=== PATIENT | male | born 1955 | race Caucasian/White ===

== ENCOUNTER → 2017-06-01 | Outpatient (CLI) | payer OTHER ==
[~2017-06-01] MED LIST: FISH OIL + D31 EACH
== END ==
LOC: RAD 10:23
DX: L40.0 Psoriasis vulgaris (principal); Z79.899 Other long term (current) drug therapy

== ENCOUNTER 2017-09-18 12:21 | Emergency (ER) | payer OTHER ==
[~2017-09-18] VITALS: Ht 175.3 cm; Wt 77.1 kg
[2017-09-18 12:22] VITALS: BP 149/86
[2017-09-18] MEDS ORDERED: OTEZLA1 EACH PO (12:30)
== END 2017-09-18 13:46 | disposition home or self-care (01) ==
LOC: ER 12:21
DX: M79.89 Other specified soft tissue disorders (principal); Z87.890 Personal history of sex reassignment

== ENCOUNTER → 2020-08-27 | Outpatient (CLI) | payer OTHER ==
[~2020-08-27] MED LIST changes: +OTEZLA1 EACH PO
== END ==
LOC: CAT 08:46
PROVIDERS: ATTEND Family Medicine
DX: Z13.6 Encounter for screening for cardiovascular disorders (principal); I25.10 Atherosclerotic heart disease of native coronary artery without angina pectoris; E78.00 Pure hypercholesterolemia, unspecified

== ENCOUNTER → 2021-12-11 | Outpatient (CLI) | payer OTHER ==
[~2021-12-11] VITALS: Ht 172.7 cm; Wt 72.6 kg
[~2021-12-11] MED LIST changes: +CRESTOR5 MG PO; +PRILOSEC OTC20 MG PO
--- NOTE | 2021-12-14 14:36 | P ---
[facility] [place] [address] PROCEDURE REPORT Name: GABRIEL BEVERLY JR Room #: REG [facility]#: [id number] Admission: 12/11/21 Attend Phys: Caesar Goldstein Discharge: Date of : 51 Report #: [id number] THIS REPORT FOR: cc: Roger Mix MD, Neal A. MD McElhinney, Christian C. MD ~ cc: Roger Mix MD DATE OF SERVICE: 12/11/2021 PROCEDURE PERFORMED: Upper endoscopy with biopsies. HISTORY OF PRESENT ILLNESS: The patient is a 66-year-old male with a history of gastroesophageal reflux disease. Upper endoscopy performed on 12/09/2020 showing grade B erosive esophagitis. 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 Biopsies were negative for H. pylori at that time. The patient was placed on daily PPI therapy. He is here for one-year followup of his Severino's esophagus. He denies any symptoms. DESCRIPTION OF PROCEDURE: The risks and benefits of the procedure were explained to the patient, those risks including but not limited to bleeding, perforation and the risk of sedation. He understood these risks and gave informed consent. Sedation was given using propofol per Anesthesia. Next, using a standard Olympus upper endoscope, the scope was placed in the patient's mouth and advanced under direct vision through the esophagus, stomach and into the second portion of the duodenum. The larynx was normal in appearance. The upper and mid esophagus was normal. In the distal esophagus, a short segment of Severino's was again noted. Biopsies were obtained. No evidence of esophagitis. Overall, the gastric mucosa was normal. The pylorus was normal and patent. The duodenal bulb, first and second portion were all normal. The scope was then withdrawn and the procedure terminated. The patient tolerated the procedure well. IMPRESSION: 1. Short segment Severino's esophagus. 2. Otherwise, normal upper endoscopy. RECOMMENDATIONS: 1. Await biopsy results. 2. Continue daily PPI therapy. [address] [address] PROCEDURE REPORT Name: GABRIEL BEVERLY Room #: REG [facility] Thomason#: [id number] Admission: 12/11/21 Attend Phys: Caesar Goldstein Discharge: Date of : 51 Report #: [id number] Thank you for allowing me to participate in his care. <ELECTRONICALLY SIGNED> By: Caesar Gordon MD 12/14/21 [id number] [id number] Caesar Gordon MD /nt
--- NOTE | 2021-12-17 18:06 | PATH ---
[facility] [address] [place] [address] PATHOLOGY RPT PROCEDURE Name: GABRIEL ORTIZ Room #: REG [facility]DR[facility] Gonzalez.#: [id number] Admission: 12/11/21 Date of : 51 Discharge: Report #: [id number] Path Case #: [id number] [facility] Accession Number: [id number] . 01 Material submitted: . esophagus - DISTAL ESOPHAGUS HX OF LAIRD'S. Modifiers: distal . 01 Clinical history: . HX OF LAIRD'S GERD, LAIRD'S . 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 - Negative for dysplasia and malignancy. . (MINGO:nubia; 12/16/2021) QLM 12/16/20212037 Local . 02 Comment: The case is seen in co-review, with consensus, by Dr. Kaur Madrid on 12/16/2021. . 02 Electronically signed: . Rodney Millan MD, Pathologist NPI- [id number] . 01 Gross description: . The specimen is received in formalin, labeled "Gabriel Ortiz Jr, distal esophagus". Received are 3 segments of pale wallace tissue ranging in size from 0.2 cm to 0.3 cm in maximum dimensions. The specimen is submitted entirely in cassette A1.([facility]; 12/11/2021) [facility] 12/11/2021 [facility] Local . 02 Pathologist provided ICD-10: K20.90, K22.70 . 02 CPT . 614032 Specimen Comment: A courtesy copy of this report has been sent to [phone], [phone] Specimen Comment: [id number] Specimen Comment: Report sent to / DR GRAY Specimen Comment: A duplicate report has been generated due to demographic updates. Performed at: [address] [place] [address] PATHOLOGY RPT PROCEDURE Name: GABRIEL ORTIZ JR Room #: REG [facility].#: [id number] Admission: 12/11/21 Date of : 51 Discharge: Report #: [id number] Path Case #: [id number] [facility] [place] [address] [place] [address] [address], [place], [place] [id number] MD Neftali Arenas MD Phone: [phone] Performed at: [address] [id number] MD Mario Teresa MD Phone: [phone]
== END ==
LOC: GI 07:37
PROVIDERS: ATTEND Specialist
DX: K22.70 Barrett's esophagus without dysplasia (principal); K21.00 Gastro-esophageal reflux disease with esophagitis, without bleeding; K31.89 Other diseases of stomach and duodenum; E78.00 Pure hypercholesterolemia, unspecified; Z87.891 Personal history of nicotine dependence; Z79.899 Other long term (current) drug therapy; Z98.890 Other specified postprocedural states; Z20.822 Contact with and (suspected) exposure to COVID-19
CPT/HCPCS: 62110; 62900